=== PATIENT | male | born 1975 | race Two or more races ===

== ENCOUNTER 2018-06-01 09:40 | Emergency (ER) | payer SELFPAY ==
[~2018-06-01] VITALS: Ht 177.8 cm; Wt 90.7 kg
[2018-06-01] MEDS ORDERED: diphenhydrAMINE HCL 50 MG/ML VIAL ONE (09:55)
[2018-06-01] MEDS ORDERED: HALOPERIDOL LACTATE INJ 5 MG/ML VIAL ONE (09:55)
[2018-06-01] MEDS ORDERED: LORAZEPAM INJ 2 MG/ML VIAL ONE (09:56)
[2018-06-01] MEDS ORDERED: diphenhydrAMINE HCL 50 MG/ML VIAL IM ONE (10:00)
[2018-06-01] MEDS ORDERED: HALOPERIDOL LACTATE INJ 5 MG/ML VIAL IM ONE (10:00)
[2018-06-01] MEDS ORDERED: IV NS 0.9% 1,000 ML BAG IV ONE (10:00)
[2018-06-01] MEDS ORDERED: LORAZEPAM INJ 2 MG/ML VIAL IM ONE (10:00)
--- NOTE | 2018-06-01 10:00 | NUR ---
PATIENT PLACED ON THE MONITOR.
[2018-06-01 10:19] LABS: BASOPHILS % (AUTO) 0.2 % (0.0-2.0); HEMATOCRIT 46 % (39-51); HEMOGLOBIN 15.2 g/dL (13.5-17.5); LYMPHOCYTES # (AUTO) 1.4 /CMM (0.8-4.8); LYMPHOCYTES % (AUTO) 10.4 % (20.0-44.0); MEAN CORPUSCULAR HGB CONC 34 g/dl (31.0-36.0); MEAN CORPUSCULAR VOLUME 88 fL (80-96); MONOCYTES # (AUTO) 0.4 /CMM (0.1-1.30); MONOCYTES % (AUTO) 3.4 % (2.0-12.0); NEUTROPHILS # (AUTO) 11.3 /CMM (1.8-8.9); PLATELET COUNT (AUTO) 288 /CMM (150-450); RED BLOOD CELL COUNT(AUTO) 5.17 MIL/uL (4.5-6.0); WHITE BLOOD COUNT (AUTO) 13.1 K/uL (4.3-11.0)
[2018-06-01 10:28] LABS: CALCIUM, SERUM 9.1 mg/dL (8.5-10.1); CREATININE 1.3 mg/dL (0.6-1.3); POTASSIUM 4.3 mmol/L (3.5-5.1)
[2018-06-01 10:35] LABS: ALBUMIN 4.7 g/dL (3.4-5.0); BILIRUBIN,DIRECT 0.1 mg/dL (0.0-0.2); BILIRUBIN,TOTAL 0.5 mg/dL (0.2-1.0); SALICYLATE 2.6 mg/dL (2.8-20.0); TOTAL PROTEIN, SERUM 8.3 g/dL (6.4-8.2)
--- NOTE | 2018-06-01 11:15 | NUR ---
PT ASLEEP IN BED AND EASILY AROUSES. ON MONITOR, SLIGHTLY TACHYCARDIC. NO COMPLAINTS AT THIS TIME
--- NOTE | 2018-06-01 13:41 | NUR ---
PT RESTING, CONVERSING WITH . NO COMPLAINTS AT THIS TIME.
--- NOTE | 2018-06-01 13:55 | NUR ---
URINE SENT TO STAT LAB
--- NOTE | 2018-06-01 14:03 | NUR ---
PER DR REYES, PT NOT READY FOR DISCHARGE
[2018-06-01 14:10] LABS: APPEARANCE,URINE Clear (CLEAR); BILIRUBIN,URINE Negative (NEGATIVE); BLOOD, URINE Negative Ery/uL (NEGATIVE); COLOR,URINE Yellow (YELLOW); KETONES,URINE Negative (NEGATIVE); LEUKOCYTE ESTERASE ,URINE Negative (NEGATIVE); NITRITE, URINE Negative (NEGATIVE); PROTEIN,URINE Negative (NEGATIVE); UGLUCOSE Negative (NEGATIVE); UROBILINOGEN,URINE 0.2 EU/dL (0.2)
--- NOTE | 2018-06-01 15:53 | NUR ---
Patient is resting comfortably in bed with eyes closed. Easily aroused. VSS
--- NOTE | 2018-06-01 16:10 | NUR ---
PROVIDED WATER. OK PER . DOREEN WELL. STATES HE FEELS BETTER, -SI/HI, READY TO GO HOME
--- NOTE | 2018-06-01 16:20 | NUR ---
IV removed. Catheter intact and site benign. Pressure and 4x4 applied to site. No bleeding noted.Patient discharged to home in stable condition. Written and verbal after care instructions given. Patient verbalizes understanding of instruction.
--- NOTE | 2018-06-01 16:40 | NUR ---
PT PROVIDED WITH PANTS
[2018-06-01 16:48] VITALS: BP 107/72
== END 2018-06-01 16:48 | disposition home or self-care (01) ==
LOC: ER 09:43
DX: R41.82 Altered mental status, unspecified (principal); R00.0 Tachycardia, unspecified
CPT/HCPCS: 36415; 80048-TC; 80076-TC; 80305; 81000-TC; 82550-TC; 85025-TC; G0480; J1200; J1630; J2060; J7030